=== PATIENT | female | born 1960 | race Caucasian/White ===

== ENCOUNTER 2017-03-21 18:40 | Emergency (ER) | payer BC ==
[~2017-03-21 18:40] MED LIST: BACTRIM DS TABL1 TA1 PO; BACTRIM DS TABL1 TA2 PO; CIPRO PO; FLEXERIL PO; FLEXERIL10 MG PO; KETOPROFEN PO; LEVAQUIN750 M1 PO; LORTAB 10-5001 EACH PO; LORTAB 5/500 TA1 TA1 PO; MACRODANTIN PO; MOBIC PO; NO MEDICATIONS; ONDANSETRON ODT4 MG PO; OTC SLEEP AID; SKELAXIN PO; TYLENOL #3 PO; VOLTAREN50 MG; VOLTAREN50 MG PO; ZOFRAN ODT4 MG; ZOFRAN PO
== END 2017-03-21 23:30 | disposition home or self-care (01) ==
LOC: CED 18:40 → CFTX 18:40
DX: L72.3 Sebaceous cyst (principal); Z88.5 Allergy status to narcotic agent; Z88.8 Allergy status to other drugs, medicaments and biological substances
CPT/HCPCS: 99282

== ENCOUNTER → 2017-03-28 | Outpatient (CLI) | payer BC ==
--- NOTE | ~2017-03-28 | MR191 ---
[facility] A Service of [facility] & [facility] RADIOLOGY TEXT RESULTS PATIENT: JUAQUIN ESPINO [facility] : 56 UNIT #: [id number] AGE: [address]: Gus Piña MD SEX: F ORDER DR: [id number] [facility] [address] [place], [place] [address] [id number] O MR#: [id number] Acc #: [id number] NAME: JUAQUIN ESPINO : 1960 SEX: F STUDY DATE/TIME: 03/28/2017 12:35 [facility]IT[facility] ROOM: STUDY DESCRIPTION: MR Shoulder Arthrogram Rt Attending Physician: Gus Piña M.D. Referring Physician: Gus Piña M.D. Ordering Physician: Gus Piña M.D. Primary Care Physician: Iris Carter M.D. MRI CENTER REPORT This report is preliminary unless electronic signature is present. EXAM MRI arthrogram right shoulder 03/28/2017 COMPARISON Right shoulder radiographs 08/01/2012, 09/10/2016, right shoulder arthrogram 03/28/2017, and MRI right shoulder 11/17/2016. Office notes from [facility] 03/18/2017. HISTORY Order states failed right rotator cuff repair. Evaluate for infraspinatus tear. History sheet states patient hyperextended her arm and shoulder tripping over her puppy 2 months ago. Did not fall. Cannot raise arm above her head. Right shoulder surgery 2012 and 01/02/2017. History of non alcoholic liver cirrhosis. COMPARISON Office notes the mass or dense parts minim and 03/28/2017. FINDINGS Multiple series were performed after the fluoroscopic injection of dilute gadolinium contrast. The patient was unable to position for the abduction - external rotation sequence. There are postoperative changes of subacromial decompression with probable acromioplasty and distal clavicle resection. There is a deficient or degenerated inferior AC joint capsuloligamentous complex allowing contrast extension into the joint from the subacromial - subdeltoid bursa (related to the rotator cuff tear). The coracoclavicular ligament complex appears intact. Coracoacromial ligament appears thickened laterally likely postsurgical. There is a massive rotator cuff tear with a full-thickness full width supraspinatus and infraspinatus tendon tears and status post supraspinatus STS. [facility] A Service of [facility] RADIOLOGY TEXT RESULTS PATIENT: JUAQUIN ESPINO [facility] : 56 UNIT #: [id number] AGE: [address]: Gus Piña MD SEX: F ORDER DR: tendon repair. The tendons are retracted nearly to the level of the glenohumeral joint space. There is a prominent contrast extension of the subacromial - subdeltoid bursa. The retracted supraspinatus muscle demonstrates no significant atrophy. The retracted infraspinatus muscle demonstrates milder early atrophy. Chronic atrophy of the teres minor muscle is again noted. There are no obvious displaced suture anchors. Biceps anchor, biceps tendon, and glenoid labrum remain unremarkable. There is no high-grade chondromalacia visible. There is however, debris, loose bodies, and/or synovitis in the axillary recess, and in the subcoracoid distended bursa. There is no marrow lesion or fracture. The subscapularis tendon is intact. IMPRESSION 1. Recurrent massive rotator cuff tear with full-thickness, full-width supraspinatus and infraspinatus tendon tears with retraction. The retracted muscles show no high-grade atrophy. There is minimal or early infraspinatus atrophy. 2. Subacromial decompression postoperative changes with contrast extension into the AC joint through a deficient or degenerated inferior capsuloligamentous complex. 3. Biceps remains intact. 4. Debris, synovitis, and/or loose bodies in the axillary recess and in the distended subcoracoid bursa. Dictated by... Kinjal Gaspar M.D. THIS IS AN ELECTRONICALLY VERIFIED REPORT Kinjal Gaspar M.D. at 03/30/2017 9:03 AM SIMEON/kyle TD: 03/29/2017 14:02 JOB #: [id number] MRI CENTER REPORT Page 1 of 1 COPY
--- NOTE | ~2017-03-28 | XA35 ---
[facility] A Service of [facility] & [facility] RADIOLOGY TEXT RESULTS PATIENT: JUAQUIN ESPINO LOCATION: [facility] : 56 UNIT #: [id number] AGE: [address]: Gus Piña MD SEX: F ORDER DR: [id number] [place] [id number] [facility] [place], [place] [address] [id number] O MR#: [id number] Acc #: [id number] NAME: JUAQUIN ESPINO. : 1960 SEX: F STUDY DATE/TIME: 03/28/2017 12:02 UNIT: [facility] ROOM: STUDY DESCRIPTION: XA Arthrogram Shoulder Rt Attending Physician: Gus Piña M.D. Referring Physician: Gus Piña M.D. Ordering Physician: Gus Piña M.D. Primary Care Physician: Iris Carter M.D. MEDICAL IMAGING REPORT This report is preliminary unless electronic signature is present PROCEDURE Right shoulder arthrogram INDICATIONS Right shoulder pain FLUOROSCOPY TIME 0.4 minutes. Four spot fluoroscopic images were taken. CONSENT Risks, benefits and alternative of the procedure were discussed with the patient and informed consent was obtained. In the procedure room a time-out was performed confirming correct patient and procedure. All elements of maximum sterile-barrier technique utilized according to guidelines appropriate for the procedure. TECHNIQUE/FINDINGS Skin overlying the right shoulder was prepped and draped in usual sterile fashion. 1% lidocaine utilized to anesthetize the skin and underlying subcutaneous tissues. Next, with the patient in external rotation a 22-gauge needle was advanced into the right shoulder joint space using the interval approach. A small amount of contrast was injected confirming satisfactory positioning. Next 10 mL of a mixture of 50% lidocaine, 50% iodinated contrast, and 0.1 mL of MultiHance was injected into the shoulder joint space under constant fluoroscopic guidance. Needle was removed and a sterile dressing was applied. Postprocedure imaging demonstrated contrast located underneath the distal clavicle and acromion and over the humeral head consistent with a rotator cuff tear. Please refer to MRI for complete details. IMPRESSION Technically successful right shoulder arthrogram in preparation for MR arthrography. [facility] A Service of [facility] & [facility] RADIOLOGY TEXT RESULTS PATIENT: JUAQUIN ESPINO LOCATION: [facility] : 56 UNIT #: [id number] AGE: [address]: Gus Piña MD SEX: F ORDER DR: Dictated by... Aquilino Miller M.D. THIS IS AN ELECTRONICALLY VERIFIED REPORT Aquilino Miller M.D. at 03/29/2017 10:06 AM ARS/to TD: 03/28/2017 22:27 JOB #: [id number] MEDICAL IMAGING REPORT Page 1 of 1 COPY
== END | disposition home or self-care (01) ==
LOC: CIVR 11:38
DX: M75.121 Complete rotator cuff tear or rupture of right shoulder, not specified as traumatic (principal); Z98.890 Other specified postprocedural states
CPT/HCPCS: 73040; 73222; Q9967